=== PATIENT | male | born 1975 | race Caucasian/White ===

== ENCOUNTER → 2021-04-27 13:04 | Outpatient (CLI) | payer OTHER, SELFPAY ==
[2021-04-27] MEDS: COVID-19 VACC #3, MRNA(MOD) 50 MCG/0.25 ML VIAL IM (13:09)
== END ==
PROVIDERS: Visit Provider Internal Medicine
DX: Z23 Encounter for immunization (principal)
CPT/HCPCS: 0013A; 91301